=== PATIENT | male | born 1960 | race Hispanic/Latino ===

== ENCOUNTER 2020-06-14 07:25 | Outpatient (CLI) | payer OTHER ==
[2020-06-14 17:05] LABS: SARS-CoV-2 PCR by NAA Not Detected (NotDetected)
== END 2020-06-14 07:26 | disposition home or self-care (01) ==
LOC: CSHLAB 07:25
PROVIDERS: ATTEND Otolaryngology Plastic Surgery within the Head & Neck
DX: Z01.818 Encounter for other preprocedural examination (principal); Z20.822 Contact with and (suspected) exposure to COVID-19; H65.22 Chronic serous otitis media, left ear; H69.82 Other specified disorders of Eustachian tube, left ear; H72.92 Unspecified perforation of tympanic membrane, left ear; J30.1 Allergic rhinitis due to pollen; T85.698A Other mechanical complication of other specified internal prosthetic devices, implants and grafts, initial encounter; R00.1 Bradycardia, unspecified
CPT/HCPCS: 87635; 93005; 93010; U0003; U0005

== ENCOUNTER 2020-06-18 06:00 | Day surgery (SDC) | payer OTHER ==
[2020-06-14 14:19] VITALS: BMI 25.0
[2020-06-18] MEDS ORDERED: Lidocaine 1% MPF 2 ML VIAL ONE (07:24)
[2020-06-18] MEDS ORDERED: oFLOXacin 0.3% Opth 5 ML BOT ONE (08:03)
[2020-06-18] MEDS ORDERED: Mupirocin 2% Ointment 22 GM Tube ONE (08:49)
[2020-06-18] MEDS ORDERED: Lidocaine 1% w/Epinephrine 1:100K 20 ML VIAL ONE (08:49)
[2020-06-18] MEDS ORDERED: Fentanyl 100 MCG/2 ML VIAL ONE (08:58)
[2020-06-18] MEDS ORDERED: Midazolam HCl 2 mg/2 ml Vial ONE (08:58)
[2020-06-18] MEDS ORDERED: PROPOFOL 20 ML ONE (08:58)
[2020-06-18] MEDS ORDERED: Ketorolac Tromethamine 30 MG/ML VIAL ONE (08:59)
[2020-06-18] MEDS ORDERED: Dexamethasone 4 mg/ml Vial ONE (10:18)
[2020-06-18] MEDS ORDERED: Ondansetron PF 4 MG/2 ML Vial ONE (10:18)
[2020-06-18] MEDS ORDERED: Glycopyrrolate 0.2 MG/ML 5 ML SYRINGE ONE (10:18)
[2020-06-18] MEDS ORDERED: Lidocaine 1% PF 5 ML VIAL ONE (10:18)
== END 2020-06-18 20:00 | disposition home or self-care (01) ==
LOC: CSHSDC 06:00
PROVIDERS: ATTEND Otolaryngology Plastic Surgery within the Head & Neck
DX: H65.22 Chronic serous otitis media, left ear (principal); H72.92 Unspecified perforation of tympanic membrane, left ear; T85.698A Other mechanical complication of other specified internal prosthetic devices, implants and grafts, initial encounter; H69.82 Other specified disorders of Eustachian tube, left ear; J30.1 Allergic rhinitis due to pollen
CPT/HCPCS: J1100; J1885; J2250; J2405; J2704; J3010

== ENCOUNTER 2022-11-25 07:14 | Outpatient (CLI) | payer OTHER | END 2022-11-25 07:15 | disposition home or self-care (01) | LOC: CSHRAD 07:14 | PROVIDERS: ATTEND Otolaryngology Plastic Surgery within the Head & Neck | DX: Z01.818 Encounter for other preprocedural examination (principal); H71.92 Unspecified cholesteatoma, left ear; H65.22 Chronic serous otitis media, left ear | CPT/HCPCS: 93005; 93010 ==

== ENCOUNTER 2025-01-13 14:01 | Day surgery (SDC) | payer OTHER ==
[2025-01-13] MEDS ORDERED: Bupivacaine/Epinephrine 0.25% 30 ML VIAL ONE (14:29)
[2025-01-13] MEDS ORDERED: PROPOFOL 20 ML ONE (15:24)
[2025-01-13] MEDS ORDERED: Rocuronium Bromide 10 MG/ML (10ML VIAL) ONE (15:27)
[2025-01-13] MEDS ORDERED: SUGAMMADEX SODIUM 200 MG/2 ML VIAL ONE (16:17)
[2025-01-13] MEDS ORDERED: HYDROcodone/Acetaminophen 5/325 mg Tablet ONE (16:54)
== END 2025-01-13 17:28 | disposition home or self-care (01) ==
LOC: CSHSDC/OP 14:01
PROVIDERS: ATTEND Surgery
PROC: 0DTJ4ZZ Resection of Appendix, Percutaneous Endoscopic Approach (ICD-10-PCS; principal; 2025-01-13)
DX: K35.80 Unspecified acute appendicitis (principal); K38.1 Appendicular concretions; N40.0 Benign prostatic hyperplasia without lower urinary tract symptoms; Z88.8 Allergy status to other drugs, medicaments and biological substances
CPT/HCPCS: 88304; A4649; J2704; J3010